=== PATIENT | male | born 1960 | race Caucasian/White ===

== ENCOUNTER 2017-04-08 12:18 | Day surgery (SDC) | payer OTHER ==
[~2017-04-08] VITALS: Ht 167.6 cm; Wt 82.5 kg
[2017-04-08] MEDS ORDERED: [UNRECOGNIZED DRUG - OTHER] PO (12:50)
[2017-04-08 12:54] VITALS: Ht 167.6 cm; Wt 82.5 kg
[2017-04-08 13:34] VITALS: BP 131/82; RESP 18
[2017-04-08] MEDS ORDERED: FENTAnyl 50 MCG/ML VIAL ONE (16:11)
[2017-04-08] MEDS ORDERED: MIDAZOLAM 1 MG/ML 2 ML INJ ONE ×3 (16:11)
--- NOTE | 2017-04-08 16:23 | OPPN ---
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 Multiple biopsies obtained * Moderate-sized internal hemorrhoids * Otherwise normal colonoscopy to cecum Plan: * Follow-up as previously scheduled * Review pathology as soon as available * Delzicol 800 mg 3 times daily * IBD panel * Surveillance colonoscopy in 1 year Operation Performed: Colonoscopy Surgeon: Jasmine Garnica MD Page Designer: None Second Hairspring I Inspector: None Anesthesia/sedation: Moderate sedation, Versed 5 mg/fentanyl [address] Garnica Tourniquet Time: NA Estimated Blood Loss: 0 Transfusion Required: No Specimens: * Right colon * Left colon * Rectum Grafts/Implants: NA Tubes/Drains: NA Complications: None Pt. Condition Post Procedure: Stable Disposition: Home After informed consent, with the patient/relatives understanding the procedure, its indications and potential risks and complications, including but not limited to: Allergic reaction, bleeding, perforation, infection, and after all pertinent questions were answered to the patient's satisfaction, the patient/ relatives signed the witnessed informed consent. Following this, premedication was administered slowly IV push under careful cardiovascular and respiratory monitoring with pulse [employer], automatic blood pressure, and engine monitor. Once the sedative effect was achieved, the patient was placed in the left lateral decubitus position, digital rectal examination was performed. A colonoscope was then introduced and advanced under visual control throughout all segments of the colon including: [the rectum, sigmoid, descending colon, splenic flexure, transverse colon, hepatic flexure, ascending colon and finally reaching the cecum which was clearly identified by transillumination, finger indentation and the ileocecal valve.] Careful examination of the mucosa of the lower gastrointestinal tract both on insertion as well as withdrawal of the instrument disclosed the following findings: Preparation quality: [Adequate], Rectal Examination: The anorectal area was visualized examined and digital rectal examination performed with the following findings: [No evidence of perirectal disease, no masses.] Colonic mucosa: The mucosa of all segments of the colon was carefully examined and showed the following findings: [There is significant erythema, edema and aphthous ulcerations of the colon mucosa from the rectum to the cecum more significantly in the left side of the colon. Multiple biopsies were obtained. Otherwise the examined mucosa appears within normal limits. There is no evidence of diverticular formation, polyps or other neoplasms, vascular malformation, or any other abnormality.] Moderate-sized internal hemorrhoids are present. The instrument was then withdrawn, the patient tolerated the procedure well and was transferred out of the Endoscopy Suite awake and in good condition to continue recovery under observation. Procedure date: Apr 08, 2017 JASMINE GARNICA MD Apr 08, 2017 16:21
[2017-04-08 16:35] VITALS: BP 118/80; PULSE 59; RESP 18
== END 2017-04-08 17:26 | disposition home or self-care (01) ==
LOC: GIL 12:18
PROVIDERS: ATTEND Internal Medicine Gastroenterology
DX: Z12.11 Encounter for screening for malignant neoplasm of colon (principal); K52.9 Noninfective gastroenteritis and colitis, unspecified; K64.8 Other hemorrhoids
CPT/HCPCS: 45378; 82962; J2250; J3010; Z7610